=== PATIENT | male | born 1950 | race Caucasian/White ===

== ENCOUNTER 2017-09-25 22:16 | Emergency (ER) | payer BC ==
[~2017-09-25] VITALS: Ht 172.7 cm; Wt 77.1 kg
[2017-09-25] MEDS ORDERED: OLME5TAB3 PO (22:23)
--- NOTE | 2017-09-25 22:40 | NUR ---
CARYL ABDI at bedside for MSE.
[2017-09-25] MEDS ORDERED: IV NORMAL SALINE 1000 ML BAG IV ONE (22:45)
--- NOTE | 2017-09-25 23:00 | NUR ---
Pt states he was sitting in a chair after "drinking a little and smoking some pot" when he experienced a syncopal episode. Denies falling or hitting his head. Episode witnessed by , who is at bedside. BIB ambulance.
[2017-09-25 23:16] LABS: BASOPHILS % (AUTO) 0.8 % (0.0-2.0); CARBON DIOXIDE 27 mmol/L (21-32); CHLORIDE 107 mmol/L (98-107); CREATININE 1.3 mg/dL (0.6-1.3); EOSINOPHILS # (AUTO) 0.1 K/uL (0.0-0.7); EOSINOPHILS % (AUTO) 2.3 % (0.0-7.0); GLUCOSE 90 mg/dL (74-106); HEMATOCRIT 42.2 % (36.7-47.1); HEMOGLOBIN 14.7 g/dL (12.5-16.3); LYMPHOCYTES % (AUTO) 31.7 % (20.5-51.5); MEAN CORPUSCULAR HEMOGLOBIN 30.1 uug (23.8-33.4); MEAN CORPUSCULAR HGB CONC 35 g/dL (32.5-36.3); MEAN CORPUSCULAR VOLUME 86.6 fL (73.0-96.2); MONOCYTES # (AUTO) 0.6 K/uL (2.0-10.0); MONOCYTES % (AUTO) 8.7 % (0.0-11.0); NEUTROPHILS # (AUTO) 3.6 K/uL (1.8-8.9); NEUTROPHILS % (AUTO) 56.5 % (38.5-71.5); PLATELET COUNT (AUTO) 175 K/uL (152-348); POTASSIUM 3.7 mmol/L (3.5-5.1); RED BLOOD CELL COUNT(AUTO) 4.88 MIL/uL (4.06-5.63); UREA NITROGEN, BLOOD 25 mg/dL (7-18); WHITE BLOOD COUNT (AUTO) 6.4 K/uL (3.6-10.2)
[2017-09-25 23:29] LABS: ALANINE AMINOTRANSFERASE 19 U/L (16-63); ALKALINE PHOSPHATASE 69 U/L (50-136); ASPARTATE AMINOTRANSFERASE 17 U/L (15-37); BILIRUBIN,DIRECT < 0.1 mg/dL (0.0-0.2); BILIRUBIN,TOTAL 0.2 mg/dL (0.2-1.0); TOTAL PROTEIN, SERUM 6.3 g/dL (6.4-8.2)
--- NOTE | 2017-09-26 01:16 | NUR ---
Patient discharged to home in stable conditon. Written and verbal after care instructions given. Patient verbalizes understanding of instructions. IV removed. No bleeding noted at site. VSS. No distress noted. All belongings taken w/ patient. Ambulated w/ steady gait.
[2017-09-26 01:19] VITALS: BP 114/68
== END 2017-09-26 01:19 | disposition home or self-care (01) ==
LOC: ER 22:18
DX: R55 Syncope and collapse (principal); F12.90 Cannabis use, unspecified, uncomplicated; I10 Essential (primary) hypertension
CPT/HCPCS: 36415; 70450; 71045; 80048; 80076; 83605; 83880; 84484; 85025; 85730; 87040 ×2; 93005; 96360; 96361; 99285; A4663; J7030; J7040; 70030-TC